=== PATIENT | male | born 1955 | race Caucasian/White ===

== ENCOUNTER → 2016-11-15 | Day surgery (SDC) | payer OTHER ==
[~2016-11-15] VITALS: Ht 182.9 cm; Wt 105.8 kg
[~2016-11-15] MED LIST: ACETAMINOPHEN 1000 MG/100 ML 100 ML IV ONE; ACETAMINOPHEN 1000 MG/100 ML VIAL IV SCH; BUPIVACAINE/EPINEPHRINE 0.5% PF 10 ML VIAL INFIL ONE; CHLORHEXIDINE GLUCONATE 2 % 1 PACK (2 CLOTHS) TOPICAL PRN; DO NOT ADM ANY ANTICOAGULANT DRUGS PRN; INSULIN HUMAN REGULAR 1,000 UNITS/10 ML VIAL SQ PRN; KETOROLAC TROMETHAMINE 60 MG/2 ML (IM) VIAL IM ONE; LACTATED RINGER'S 1000 ML INJ 1,000 ML IV ONE; LACTATED RINGER'S 1000 ML IV PRN; METOPROLOL TARTRATE 25 MG TAB PO PRN; MORPHINE SULFATE 4 MG/ML INJ IV PRN; MULTTAB67 PO; ONDANSETRON HCL 4 MG/2 ML VIAL IV PUSH ONE; POVIDONE IODINE 5% (ANTISEPSIS KIT) 4 APPLICATIONS EACH NARE PRN; PROPOFOL 200 MG/20 ML AMP IV ONE; SODIUM CHLORID 0.9% 500 ML IV PRN; SODIUM CHLORIDE 0.9% FLUSH 10 ML FLUSH IV FLUSH PRN; SODIUM CHLORIDE 0.9% FLUSH 10 ML FLUSH IV FLUSH SCH; ceFAZolin 2 GM PREMIX 50 ML ONE; oxyCODONE/ACETAMINOPHEN 5 MG/325 MG TAB ONE; oxyCODONE/ACETAMINOPHEN 5 MG/325 MG TAB PO PRN
[2016-11-15] MEDS: ceFAZolin 2 GM PREMIX 50 ML IV SCH ×2 (10:40→15:12)
--- NOTE | 2016-11-15 16:00 | PD.OP ---
cc: Rupert Esqueda MD Operative Report Date of Surgery: Nov 15, 2016 Preoperative Diagnosis: (1) Left inguinal hernia Postoperative Diagnosis: (1) Left inguinal hernia Procedure: Left inguinal hernia repair Anesthesia: HUGO Surgeon: Rupert Esqueda Pasteurizer Helper(s): Tia Operation and Findings: EBL: 20 cc Operative findings: Large left inguinal scrotal hernia with sigmoid colon. Procedure in detail: The patient was taken to the operating room and placed in the supine position. Gen. Anesthesia was induced. The lower abdomen and groin was prepped and draped in usual sterile fashion. Appropriate preoperative antibiotics were administered. Marcaine with epinephrine was injected in the skin and subcutaneous tissue in the left inguinal area and an inguinal incision was made. Dissection was carried out through subcutaneous tissue with electrocautery. Tavares's fascia was divided with electrocautery and the external oblique was encountered. A valentino along the direction of fibers was created with a scalpel and extended with Metzenbaum scissors taking care not to injure underlying nerves. The external oblique flaps were created. The patient was noted to have a very large inguinal scrotal hernia with sigmoid colon present in the hernia sac. The hernia sac was carefully from the spermatic cord structures primarily using blunt dissection and also judicious use of electrocautery. The hernia was a large indirect defect. A portion of the hernia sac was removed. There was a defect of the hernia sac created and this was closed with a running 3-0 Vicryl suture. The hernia was able to be reduced back into the abdominal cavity. The spermatic cord was isolated with a Hart drain. Cremasteric muscle fibers were divided as necessary. Some fatty tissue included in the spermatic cord was removed. A 15 x 15 cm piece of lightweight polypropylene mesh was then cut to size. This was secured using simple interrupted 2-0 Ethibond suture to the pubic tubercle and along the inguinal ligament past the entrance of the spermatic cord into the internal ring. Simple interrupted 2-0 Ethibond sutures were used to fasten the superior aspect of the mesh medially and superiorly along the conjoined tendon and internal oblique fibers taking care to avoid nearby nerves. The internal ring was re-created by reapproximating the mesh with interrupted suture taking care to avoid strangulation of the cord. The lateral flaps of mesh were tucked under the external oblique fascia. There was appropriate hemostasis in the operative field. The external ring was re-created by closing the external oblique fascia with running 3-0 Vicryl suture. Tavares's was closed with interrupted 3-0 Vicryl sutures. Skin closed with absorbable subcuticular bryanna as well as Dermabond. The patient tolerated procedure well and was taken to postop in stable condition. Rupert Esqueda MD Nov 15, 2016 16:00
[2016-11-15 18:00] VITALS: BP 128/77; PULSE 71; RESP 18; TEMP 98; O2SAT 97
== END | disposition home or self-care (01) ==
LOC: HSDC 09:21
PROVIDERS: ATTEND Surgery
DX: K40.90 Unilateral inguinal hernia, without obstruction or gangrene, not specified as recurrent (principal); R73.03 Prediabetes; F52.21 Male erectile disorder; E66.9 Obesity, unspecified; Z68.31 Body mass index [BMI] 31.0-31.9, adult; Z87.448 Personal history of other diseases of urinary system
CPT/HCPCS: 00830; 49505; C1781; J0131; J0690; J1885; J2405; J3010; J7120